=== PATIENT | male | born 2000 | race Caucasian/White ===

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

== ENCOUNTER → 2019-01-17 | Outpatient (CLI) | payer MEDICAID ==
[2019-01-17 13:39] LABS: HEMATOCRIT 52.6 % (36.0-47.0); HEMOGLOBIN 18.1 g/dl (12.5-16.1); MEAN CELL VOLUME 100 fl (80.0-95.0); MEAN CORPUSCULAR HEMOGLOBIN 34 pg (26.0-32.0); MEAN CORPUSCULAR HGB CONC 34 g/dl (33.0-37.0); MEAN PLATELET VOLUME 9.4 fl (7.4-10.4); PLATELET COUNT 194 K/mm3 (130-400); RED BLOOD COUNT 5.27 M/mm3 (4.20-5.60); REDCELL DISTRIBUTION WIDTH-CV 13.3 % (11.5-14.5)
[2019-01-17 13:51] LABS: ANION GAP 11 mmol/L (7-16); BLOOD UREA NITROGEN 16 mg/dL (9-20); CALCIUM 10.2 mg/dL (8.4-10.2); CARBON DIOXIDE 29 mmol/L (22-30); CHLORIDE 99 mmol/L (98-107); GLUCOSE 96 mg/dL (74-106); POTASSIUM 5.3 mmol/L (3.4-5.0); SODIUM 139 mmol/L (137-145)
[2019-01-17 13:58] LABS: C-REACTIVE PROTEIN < 0.5 mg/dL (0.0-0.9)
[2019-01-17 14:01] LABS: ERYTHROCYTE SEDIMENTATION RATE 1 mm/hr (0-15); TROPONIN-I < 0.012 ng/mL (0.000-0.035)
== END ==
LOC: COL.RAD 13:15
PROVIDERS: Internal Medicine Interventional Cardiology
DX: R07.89 Other chest pain (principal)